=== PATIENT | female | born 1955 | race Caucasian/White ===

== ENCOUNTER → 2017-01-20 | Outpatient (CLI) | payer BC ==
--- NOTE | 2017-01-20 15:21 | DI ---
MRI LOW EXTREMITY JNT W/WO CN,01/20/2017 9:58 AM: Clinical History: Left knee pain and primary osteoarthritis. Previous Exam: None at this facility. Findings: Multiplanar MR images are obtained through the left knee both before and after the intravenous admini stration of 20 mL of OptiMARK contrast. Alignment is anatomic. No fractures are seen. Marrow signal is preserved. There is loss of articular cartilage tricompartmentally worse involving the medial compartment. Osteophyte formation is noted. There is a small knee joint effusion. There is some subchondral edema noted as well. There is degenerative tearing of the medial and lateral meniscus worse medially than laterally. Anterior and posterior crucial ligaments are intact and the medial and lateral collateral ligaments a re also intact. There is no evidence of Espinoza's cyst. The major vascular flow voids are unremarkable. Signal within the musculature is unremarkable. 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 Degenerative tearing of the medial and lateral meniscus. Knee joint effusion.
== END ==
LOC: MRI 09:51
PROVIDERS: ATTEND Family Medicine
DX: M25.562 Pain in left knee (principal); M94.262 Chondromalacia, left knee; M25.462 Effusion, left knee; M23.362 Other meniscus derangements, other lateral meniscus, left knee
CPT/HCPCS: 73723